=== PATIENT | female | born 1935 | race Caucasian/White ===

== ENCOUNTER 2016-11-20 13:12 | Outpatient (CLI) | payer MEDICARE, BC | END 2016-11-20 13:13 | disposition home or self-care (01) | DX: M35.3 Polymyalgia rheumatica (principal) ==

== ENCOUNTER 2016-12-21 10:38 | Outpatient (CLI) | payer MEDICARE, BC | END 2016-12-21 10:39 | disposition home or self-care (01) | DX: M35.3 Polymyalgia rheumatica (principal) ==

== ENCOUNTER 2017-01-21 13:51 | Outpatient (CLI) | payer MEDICARE, BC | END 2017-01-21 13:52 | disposition home or self-care (01) | DX: M35.3 Polymyalgia rheumatica (principal) ==

== ENCOUNTER 2017-02-19 13:35 | Outpatient (CLI) | payer MEDICARE, BC | END 2017-02-19 13:36 | disposition home or self-care (01) | DX: M51.36 Other intervertebral disc degeneration, lumbar region (principal); M47.896 Other spondylosis, lumbar region; M41.86 Other forms of scoliosis, lumbar region; M35.3 Polymyalgia rheumatica; R82.5 Elevated urine levels of drugs, medicaments and biological substances; R30.0 Dysuria; N39.0 Urinary tract infection, site not specified ==

== ENCOUNTER 2017-02-19 14:23 | Outpatient (CLI) | payer MEDICARE, BC | END 2017-02-19 14:24 | disposition home or self-care (01) | DX: R82.5 Elevated urine levels of drugs, medicaments and biological substances (principal); R30.0 Dysuria; N39.0 Urinary tract infection, site not specified ==

== ENCOUNTER 2017-02-25 12:26 | Outpatient (CLI) | payer MEDICARE, BC | END 2017-02-25 12:27 | disposition home or self-care (01) | DX: M54.5 Low back pain (principal) ==

== ENCOUNTER 2017-03-26 13:08 | Outpatient (CLI) | payer MEDICARE, BC | END 2017-03-26 13:09 | disposition home or self-care (01) | LOC: LAB 13:08 | PROVIDERS: ATTEND Internal Medicine | DX: M35.3 Polymyalgia rheumatica (principal) | CPT/HCPCS: 36415; 85651; 86140 ==

== ENCOUNTER 2017-04-25 11:46 | Outpatient (CLI) | payer MEDICARE, BC | END 2017-04-25 11:47 | disposition home or self-care (01) | LOC: LAB 11:46 | PROVIDERS: ATTEND Internal Medicine | DX: M35.3 Polymyalgia rheumatica (principal) | CPT/HCPCS: 36415; 85651; 86140 ==

== ENCOUNTER 2017-05-24 13:51 | Outpatient (CLI) | payer MEDICARE, BC ==
[2017-05-24 14:26] LABS: HCT - HEMATOCRIT 46.5 % (37.0-47.0); HGB - HEMOGLOBIN 15.6 g/dL (12.0-16.0)
[2017-05-24 15:10] LABS: FERRITIN 41.5 ng/mL (11.0-306.8)
[2017-05-24 15:24] LABS: THYROID STIMULATING HORMONE 1.42 uIU/mL (0.34-5.60)
[2017-05-24 15:30] LABS: IRON 62 ug/dL (28-170); TOTAL IRON BINDING CAPACITY 374 ug/dL (250-450); TRANSFERRIN 267 mg/dL (192-382)
== END 2017-05-24 13:52 | disposition home or self-care (01) ==
LOC: LAB 13:51
PROVIDERS: ATTEND Internal Medicine
DX: M35.3 Polymyalgia rheumatica (principal)
CPT/HCPCS: 36415; 82728; 83540; 84443; 84466; 85014; 85018; 85651; 86140

== ENCOUNTER 2017-06-24 14:37 | Outpatient (CLI) | payer MEDICARE, BC | END 2017-06-24 14:38 | disposition home or self-care (01) | LOC: LAB 14:37 | PROVIDERS: ATTEND Internal Medicine | DX: M35.3 Polymyalgia rheumatica (principal) | CPT/HCPCS: 36415; 85651; 86140 ==

== ENCOUNTER 2017-07-03 09:00 | Outpatient (CLI) | payer MEDICARE, BC ==
[2017-07-03 09:52] LABS: BASOPHILS # (AUTO) 0.1 10^3/uL (0.0-0.1); BASOPHILS % (AUTO) 1.2 %; EOSINOPHILS # (AUTO) 0.2 10^3/uL (0.0-0.7); EOSINOPHILS % (AUTO) 3.8 %; HCT - HEMATOCRIT 44.2 % (37.0-47.0); HGB - HEMOGLOBIN 14.6 g/dL (12.0-16.0); LYMPHOCYTES # (AUTO) 1.4 10^3/uL (1.5-3.5); LYMPHOCYTES % (AUTO) 23.7 %; MEAN CORPUSCULAR HEMOGLOBIN 31.5 pg (27.0-31.0); MEAN CORPUSCULAR VOLUME 95.5 fL (81.0-99.0); MEAN PLATELET VOLUME 7.9 fL (7.9-10.8); MONOCYTES # (AUTO) 0.3 10^3/uL (0.0-1.0); MONOCYTES % (AUTO) 5.9 %; NEUTROPHILS # (AUTO) 3.8 10^3/uL (1.5-6.6); NEUTROPHILS % (AUTO) 65.4 %; NUCLEATED RED BLOOD CELLS AUTO 0.1 /100WBC; RED BLOOD COUNT 4.63 10^6/uL (4.20-5.40); RED CELL DISTRIBUTION WIDTH 12.8 % (12.0-15.0); UNCORRECTED WHITE BLOOD COUNT 5.8 x10^3/uL; WHITE BLOOD COUNT 5.8 x10^3/uL (4.8-10.8)
[2017-07-03 10:23] LABS: ALBUMIN/GLOBULIN RATIO 1.4 (1.0-2.2); BILIRUBIN,TOTAL 0.9 mg/dL (0.2-1.0); BUN - BLOOD UREA NITROGEN 16 mg/dL (6-20); CALCIUM 9.2 mg/dL (8.5-10.3); CARBON DIOXIDE - CO2 29 mmol/L (21-32); CHLORIDE 105 mmol/L (101-111); CHOLESTEROL 144 mg/dL; CREATININE 0.6 mg/dL (0.4-1.0); GFR - MDRD 96 (>89); GLUCOSE 89 mg/dL (70-100); HDL CHOLESTEROL 71 mg/dL; LDL/HDL RATIO 0.7 (<4.4); SODIUM 141 mmol/L (135-145); TOTAL PROTEIN 6.6 g/dL (6.7-8.2); TRIGLYCERIDES 118 mg/dL; VLDL CHOLESTEROL 24 mg/dL
== END 2017-07-03 09:01 | disposition home or self-care (01) ==
LOC: LAB 09:00
PROVIDERS: ATTEND Physician Assistant Medical
DX: E55.9 Vitamin D deficiency, unspecified (principal); E78.5 Hyperlipidemia, unspecified; Z79.899 Other long term (current) drug therapy
CPT/HCPCS: 36415; 80053; 80061; 82306; 84443; 85025

== ENCOUNTER 2017-07-24 10:45 | Outpatient (CLI) | payer MEDICARE, BC ==
--- NOTE | 2017-07-24 14:55 | DEXA Report ---
DEXA SCAN: 07/24/2017 CLINICAL INDICATION: Osteopenia. TECHNIQUE: Dual energy x-ray absorptiometry (DXA) was performed on a [employer] system. Regions measured are the AP spine, femoral neck, and, if needed, forearm. COMPARISON: None. In accordance with the International Society for Clinical Densitometry (ISCD) guidelines, data from previous exams may be reanalyzed using current recommendations and techniques. This is done to allow a more accurate basis for comparison with the current study. FINDINGS The data for the lumbar spine is as follows: REGION BMD (g/cm/cm) T-SCORE Z-SCORE L1 0.933 -1.6 1.0 L2 0.975 -1.9 0.7 L3 1.241 0.3 2.9 L4 1.106 -0.8 1.8 TOTAL 1.078 -0.9 1.8 NOTE: All evaluable vertebrae are used for classification. The data for the hip is as follows: REGION BMD (g/cm/cm) T-SCORE Z-SCORE Neck 0.750 -2.1 0.7 TOTAL 0.741 -2.1 0.5 NOTE: The femoral neck or total proximal femur, whichever is lowest, is used for classification. IMPRESSION: THE WHO CLASSIFICATION BASED ON THE INTERNATIONAL REFERENCE STANDARD IS OSTEOPENIA. THE FRACTURE RISK IS INCREASED. RECOMMENDATION: Patients with diagnosis of osteoporosis or osteopenia should have regular bone mineral density assessment. For those eligible for Medicare, routine testing is allowed once every 2 years. Testing frequency can be increased for patients who have rapidly progressing disease or for those who are receiving medical therapy to restore bone mass. COMMENT: World Health Organization (WHO) definitions for osteoporosis and osteopenia: NORMAL BMD: T-score at -1.0 or higher, fracture risk is low. OSTEOPENIA BMD: T-score between -1.0 and -2.5, fracture risk is increased. OSTEOPOROSIS BMD: T-score at -2.5 or lower, fracture risk high. National Osteoporosis Foundation recommends: 1. Obtain adequate dietary calcium (at least 1200 mg per day) and vitamin D (400 -800 international units per day). 2. Participate, as appropriate, in regular weightbearing and muscle- strengthening exercise. 3. Avoid tobacco use and reduce alcohol and caffeine intake. 4. For more detailed information see the website at www.NOF.org. MTDD
== END 2017-07-24 10:46 | disposition home or self-care (01) ==
LOC: DI 10:45
PROVIDERS: ATTEND Physician Assistant Medical
DX: M85.88 Other specified disorders of bone density and structure, other site (principal)
CPT/HCPCS: 77080

== ENCOUNTER 2017-08-27 11:08 | Outpatient (CLI) | payer MEDICARE, BC | END 2017-08-27 11:09 | disposition home or self-care (01) | LOC: LAB 11:08 | PROVIDERS: ATTEND Internal Medicine | DX: M35.3 Polymyalgia rheumatica (principal) | CPT/HCPCS: 36415; 85651; 86140 ==

== ENCOUNTER 2017-09-25 11:25 | Outpatient (CLI) | payer MEDICARE, BC | END 2017-09-25 11:26 | disposition home or self-care (01) | LOC: LAB 11:25 | PROVIDERS: ATTEND Internal Medicine | DX: M35.3 Polymyalgia rheumatica (principal) | CPT/HCPCS: 36415; 85651; 86140 ==

== ENCOUNTER 2017-10-31 11:25 | Outpatient (CLI) | payer MEDICARE, BC | END 2017-10-31 11:26 | disposition home or self-care (01) | LOC: LAB 11:25 | PROVIDERS: ATTEND Internal Medicine | DX: M35.3 Polymyalgia rheumatica (principal) | CPT/HCPCS: 36415; 85651; 86140 ==

== ENCOUNTER 2017-11-28 11:17 | Outpatient (CLI) | payer MEDICARE, BC | END 2017-11-28 11:18 | disposition home or self-care (01) | LOC: LAB 11:17 | PROVIDERS: ATTEND Internal Medicine | DX: M35.3 Polymyalgia rheumatica (principal) | CPT/HCPCS: 36415; 85651; 86140 ==

== ENCOUNTER 2017-12-26 11:07 | Outpatient (CLI) | payer MEDICARE, BC | END 2017-12-26 11:08 | disposition home or self-care (01) | LOC: LAB 11:07 | PROVIDERS: ATTEND Internal Medicine | DX: M35.3 Polymyalgia rheumatica (principal) | CPT/HCPCS: 36415; 85651; 86140 ==

== ENCOUNTER 2018-01-28 11:09 | Outpatient (CLI) | payer MEDICARE, BC | END 2018-01-28 11:10 | disposition home or self-care (01) | LOC: LAB 11:09 | PROVIDERS: ATTEND Internal Medicine | DX: M35.3 Polymyalgia rheumatica (principal) | CPT/HCPCS: 36415; 85651; 86140 ==

== ENCOUNTER 2018-02-27 11:27 | Outpatient (CLI) | payer MEDICARE, BC | END 2018-02-27 11:28 | disposition home or self-care (01) | LOC: LAB 11:27 | PROVIDERS: ATTEND Internal Medicine | DX: M35.3 Polymyalgia rheumatica (principal) | CPT/HCPCS: 36415; 85651; 86140 ==

== ENCOUNTER 2018-05-13 08:00 | Outpatient (CLI) | payer MEDICARE, BC | END 2018-05-13 08:01 | disposition home or self-care (01) | LOC: LAB.R 08:00 | PROVIDERS: ATTEND Physician Assistant Medical | DX: N30.00 Acute cystitis without hematuria (principal) | CPT/HCPCS: 87086 ==

== ENCOUNTER 2018-07-03 11:30 | Outpatient (CLI) | payer MEDICARE, BC ==
[2018-07-03 14:27] LABS: BILIRUBIN,URINE NEGATIVE (NEGATIVE); GLUCOSE, URINE (UA) NEGATIVE (NEGATIVE); KETONES,URINE (UA) NEGATIVE (NEGATIVE); LEUKOCYTE ESTERASE, URINE SMALL (NEGATIVE); NITRITE,URINE NEGATIVE (NEGATIVE); OCCULT BLOOD,URINE NEGATIVE (NEGATIVE); PH,URINE 6.5 PH (5.0-7.5); PROTEIN,URINE NEGATIVE (NEGATIVE); UROBILINOGEN,URINE 0.2 (NORMAL) E.U./dL (NORMAL)
[2018-07-03 14:32] LABS: CLARITY,URINE CLEAR (CLEAR)
[2018-07-03 14:47] LABS: BACTERIA,URINE Few /HPF (None Seen); RBC,URINE 0-5 /HPF (0-5); SQUAMOUS EPITHELIAL CELL,UR MOD Squamous (<= Few)
== END 2018-07-03 11:31 ==
LOC: LAB.R 11:30
PROVIDERS: ATTEND Physician Assistant Medical
DX: N30.00 Acute cystitis without hematuria (principal)
CPT/HCPCS: 81001; 81003; 87086

== ENCOUNTER → 2018-07-24 | Outpatient (CLI) | payer MEDICARE, BC | LOC: LAB.R 08:00 | PROVIDERS: ATTEND Physician Assistant Medical | DX: N30.00 Acute cystitis without hematuria (principal) | CPT/HCPCS: 87086; 87181 ==

== ENCOUNTER 2018-09-02 11:05 | Outpatient (CLI) | payer MEDICARE, BC | END 2018-09-02 23:59 | LOC: LAB.R 11:05 | PROVIDERS: ATTEND Physician Assistant Medical | DX: N30.00 Acute cystitis without hematuria (principal) | CPT/HCPCS: 87086 ==

== ENCOUNTER 2020-01-07 09:06 | Outpatient (CLI) | payer MEDICARE, BC ==
[2020-01-07 12:24] LABS: BASOPHILS # (AUTO) 0.1 10^3/uL (0.0-0.1); EOSINOPHILS # (AUTO) 0.2 10^3/uL (0.0-0.7); EOSINOPHILS % (AUTO) 4.4 %; HGB - HEMOGLOBIN 15.4 g/dL (12.0-16.0); LYMPHOCYTES # (AUTO) 1.2 10^3/uL (1.5-3.5); LYMPHOCYTES % (AUTO) 23.2 %; MEAN CORPUSCULAR HEMOGLOBIN 32.4 pg (27.0-31.0); MEAN CORPUSCULAR HGB CONC 32.9 g/dL (32.0-36.0); MEAN CORPUSCULAR VOLUME 98.3 fL (81.0-99.0); MONOCYTES # (AUTO) 0.4 10^3/uL (0.0-1.0); MONOCYTES % (AUTO) 7.6 %; NEUTROPHILS # (AUTO) 3.2 10^3/uL (1.5-6.6); NEUTROPHILS % (AUTO) 63.6 %; PLT - PLATELET COUNT 302 10^3/uL (130-450); RED BLOOD COUNT 4.76 10^6/uL (4.20-5.40); RED CELL DISTRIBUTION WIDTH 13.1 % (12.0-15.0)
[2020-01-07 12:47] LABS: ALBUMIN 4.3 g/dL (3.2-5.5); ALBUMIN/GLOBULIN RATIO 1.5 (1.0-2.2); ALKALINE PHOSPHATASE 57 IU/L (42-121); ALT ALANINE AMINOTRANSFERASE 29 IU/L (10-60); AST ASPARTATE AMINOTRANSFERASE 32 IU/L (10-42); BILIRUBIN,TOTAL 0.9 mg/dL (0.2-1.0); BUN - BLOOD UREA NITROGEN 18 mg/dL (6-20); CALCIUM 9.1 mg/dL (8.5-10.3); CARBON DIOXIDE - CO2 29 mmol/L (21-32); CHLORIDE 101 mmol/L (101-111); CHOL/HDL RATIO 2.1 (<4.4); CHOLESTEROL 153 mg/dL; CREATININE 0.6 mg/dL (0.4-1.0); GFR - MDRD 95 (>89); GLUCOSE 92 mg/dL (70-100); HDL CHOLESTEROL 72 mg/dL; LDL CHOLESTEROL,CALCULATED 64 mg/dL; LDL/HDL RATIO 0.9 (<4.4); SODIUM 138 mmol/L (135-145); TOTAL PROTEIN 7.1 g/dL (6.7-8.2); VLDL CHOLESTEROL 17 mg/dL
== END 2020-01-07 23:59 | disposition home or self-care (01) ==
LOC: LAB.N 09:06
PROVIDERS: ATTEND Nurse Practitioner
DX: M35.3 Polymyalgia rheumatica (principal); Z79.899 Other long term (current) drug therapy; E55.9 Vitamin D deficiency, unspecified; E78.2 Mixed hyperlipidemia; I10 Essential (primary) hypertension
CPT/HCPCS: 36415; 80053; 80061; 82306; 83721; 84443; 85025

== ENCOUNTER 2020-06-23 09:32 | Outpatient (CLI) | payer MEDICARE, BC ==
--- NOTE | 2020-06-24 09:09 | Ultrasound Report ---
LIMITED ULTRASOUND OF RIGHT BREAST: 06/23/2020 No prior exams were available for comparison. Real-time ultrasound of the right breast upper inner quadrant was performed on the area of interest. No discrete cystic or solid mass lesion identified in the area of palpable abnormality. IMPRESSION: INCOMPLETE: NEEDS ADDITIONAL IMAGING EVALUATION There is no abnormality seen in the right breast to correspond with the palpable abnormality in the u pper inner quadrant, however, clinical followup is recommended. A diagnostic mammogram is also recommended for further evaluation as ultrasound is insensitive for ab normalities such as calcifications or architectural distortion. This exam was interpreted at Station ID: [id number]. Electronically Signed By: Cornelius Santos M.D. ddp/:06/23/2020 11:16:58 Ultrasound BI-RADS: 0 Indeterminate BI-RADS CATEGORY: (0) - 0 RECOMMENDATION: (ADDMAM) - Recommend additional mammographic views. [id number] Immediate follow-up LATERALITY: (B)
== END 2020-06-23 09:33 | disposition home or self-care (01) ==
LOC: DI 09:32
PROVIDERS: ATTEND Nurse Practitioner
DX: N63.12 Unspecified lump in the right breast, upper inner quadrant (principal); Z98.82 Breast implant status
CPT/HCPCS: 76642

== ENCOUNTER 2020-08-24 08:24 | Outpatient (CLI) | payer MEDICARE, BC ==
[2020-08-24] MEDS ORDERED: GADOBUTROL 7.5 MMOL/7.5 ML VIAL ONE (09:48)
[2020-08-24] MEDS ORDERED: GADOBUTROL 7.5 MMOL/7.5 ML VIAL IVP ONE (12:19)
--- NOTE | 2020-09-01 15:01 | MRI Report ---
BREAST MRI OF BOTH BREASTS: 08/24/2020 CLINICAL: Occasional right breast pain. PROCEDURE: MRI BREAST BILATERAL WITH CAD ([id number]) INDICATIONS: Intermittent burning in right breast. R/O implant rupture or leak. TECHNIQUE: The patient was placed prone in a dedicated breast imaging coil. Precontrast axial STIR and 3D FLASH without fat saturation sequences were obtained. Both before and after bolus injection of contrast, sequential 1-minute axial 3D FLASH with fat saturation sequences for 3 time points, with subtraction images and maximum intensity projections (MIPs) generated. Delayed sagittal FLASH images with fat s aturation were also obtained. Computer-aided detection, including computer algorithm analysis of MRI image data for lesion detectio n and characterization, pharmacokinetic analysis, with further physician review for interpretation, w as performed. COMPARISON: None. FINDINGS: Image quality: Excellent. There is minimal background parenchymal enhancement. Right breast: The right breast implant is intact. No findings to suggest intra or extracapsular imp lant rupture. No suspicious enhancement or mass lesions within the right breast. Left breast: There is a 0.9 cm in diameter and a 0.6 cm in diameter T1 hyperintense mass within the left breast deep to the nipple at 3:00 o'clock at a middle depth (series 1402, images 45 and 46). Th luis are hypointense on T2 images. No suspicious enhancement or mass lesions. Miscellaneous: No axillary adenopathy. No intramammary adenopathy. Limited visualization of the he art, lungs, mediastinum, and upper abdomen are unremarkable. A T1 hypointense lesion within the righ t hepatic lobe suggest the presence of a simple hepatic cyst, but is incompletely characterized. IMPRESSION: INCOMPLETE: NEEDS ADDITIONAL IMAGING EVALUATION 1. Intact bilateral breast implants. No findings to suggest intra or extracapsular rupture. 2. T1 hyperintense, T2 hypointense, nonenhancing masses at 3 o'clock in the left breast. Findings ma y represent proteinaceous cysts. Second-look ultrasound is recommended to further characterize these findings. 3. Mammographic comparison is recommended within 6 months of MRI. The patient's previous mammogram w as in 2013. Bilateral mammogram recommended. This exam was interpreted at Station ID: [id number]. Electronically Signed By: Lima cancino/:09/01/2020 13:26:27 ACR BI-RADS Category 0: Incomplete 3340F BI-RADS CATEGORY: (0) - 0 Mammo and [place] [id number] Immediate follow-up LATERALITY: (B)
== END 2020-08-24 08:25 | disposition home or self-care (01) ==
LOC: DI 08:24
PROVIDERS: ATTEND Nurse Practitioner
DX: N63.25 Unspecified lump in the left breast, overlapping quadrants (principal); Z98.82 Breast implant status
CPT/HCPCS: 77049; A9585

== ENCOUNTER 2020-12-26 10:15 | Outpatient (CLI) | payer MEDICARE, BC ==
[2020-12-26 10:30] LABS: BASOPHILS # (AUTO) 0.1 10^3/uL (0.0-0.1); BASOPHILS % (AUTO) 0.8 %; EOSINOPHILS # (AUTO) 0.5 10^3/uL (0.0-0.7); EOSINOPHILS % (AUTO) 6.4 %; HCT - HEMATOCRIT 48.9 % (37.0-47.0); HGB - HEMOGLOBIN 15.8 g/dL (12.0-16.0); LYMPHOCYTES # (AUTO) 1.7 10^3/uL (1.5-3.5); LYMPHOCYTES % (AUTO) 21.1 %; MEAN CORPUSCULAR HEMOGLOBIN 31.7 pg (27.0-31.0); MEAN CORPUSCULAR HGB CONC 32.3 g/dL (32.0-36.0); MEAN PLATELET VOLUME 9.2 fL (7.9-10.8); MONOCYTES # (AUTO) 0.4 10^3/uL (0.0-1.0); MONOCYTES % (AUTO) 5.5 %; NEUTROPHILS # (AUTO) 5.2 10^3/uL (1.5-6.6); NEUTROPHILS % (AUTO) 65.9 %; PLT - PLATELET COUNT 277 10^3/uL (130-450); RED BLOOD COUNT 4.99 10^6/uL (4.20-5.40); RED CELL DISTRIBUTION WIDTH 12.9 % (12.0-15.0); WHITE BLOOD COUNT 7.9 x10^3/uL (4.8-10.8)
[2020-12-26 11:03] LABS: ALBUMIN 4.1 g/dL (3.2-5.5); ALBUMIN/GLOBULIN RATIO 1.4 (1.0-2.2); ALKALINE PHOSPHATASE 68 IU/L (42-121); ALT ALANINE AMINOTRANSFERASE 27 IU/L (10-60); AST ASPARTATE AMINOTRANSFERASE 33 IU/L (10-42); BILIRUBIN,TOTAL 0.9 mg/dL (0.2-1.0); BUN - BLOOD UREA NITROGEN 22 mg/dL (6-20); CALCIUM 9.8 mg/dL (8.5-10.3); CARBON DIOXIDE - CO2 28 mmol/L (21-32); CHLORIDE 102 mmol/L (101-111); CHOL/HDL RATIO 2.2 (<4.4); CHOLESTEROL 174 mg/dL; CREATININE 0.7 mg/dL (0.4-1.0); GFR - MDRD 80 (>89); GLUCOSE 101 mg/dL (70-100); HDL CHOLESTEROL 80 mg/dL; LDL CHOLESTEROL,CALCULATED 78 mg/dL; POTASSIUM 4.5 mmol/L (3.5-5.0); SODIUM 142 mmol/L (135-145); TOTAL PROTEIN 7.1 g/dL (6.7-8.2); TRIGLYCERIDES 82 mg/dL; VLDL CHOLESTEROL 16 mg/dL
[2020-12-26 11:04] LABS: THYROID STIMULATING HORMONE 2.03 uIU/mL (0.34-5.60)
== END 2020-12-26 10:16 | disposition home or self-care (01) ==
LOC: LAB 10:15
PROVIDERS: ATTEND Nurse Practitioner
DX: I10 Essential (primary) hypertension (principal); G45.9 Transient cerebral ischemic attack, unspecified; E78.2 Mixed hyperlipidemia; E55.9 Vitamin D deficiency, unspecified; M85.80 Other specified disorders of bone density and structure, unspecified site
CPT/HCPCS: 36415; 80053; 80061; 82306; 83721; 84443; 85025

== ENCOUNTER 2021-01-09 07:49 | Outpatient (CLI) | payer MEDICARE, BC ==
--- NOTE | 2021-01-09 17:33 | XRAY Report ---
PROCEDURE: Hand 3 View RT INDICATIONS: ARTHRITIS, R HAND TECHNIQUE: 3 views of the right hand(s) acquired. COMPARISON: None FINDINGS: Bones: No fractures or dislocations. No suspicious bony lesions. Severe first triscaphe the and fir st CMC joint osteoarthritis. Severe third, fourth and fifth PIP joint osteoarthritis. Mild first CMC joint and first through fifth PIP joint arthritis. Soft tissues: No suspicious soft tissue calcifications. IMPRESSION: Osteoarthritis as described above. Reviewed by: Geovanna Kwong MD, PhD on 01/09/2021 5:32 PM PDT Approved by: Geovanna Kwong MD, PhD on 01/09/2021 5:32 PM PDT Station ID: [id number]
== END 2021-01-09 23:59 | disposition home or self-care (01) ==
LOC: DI.N 07:49
PROVIDERS: ATTEND Orthopaedic Surgery
DX: M19.041 Primary osteoarthritis, right hand (principal); M18.11 Unilateral primary osteoarthritis of first carpometacarpal joint, right hand

== ENCOUNTER 2022-08-07 09:51 | Outpatient (CLI) | payer MEDICARE, BC ==
[2022-08-07 10:08] LABS: BASOPHILS # (AUTO) 0.1 10^3/uL (0.0-0.1); BASOPHILS % (AUTO) 1.2 %; EOSINOPHILS # (AUTO) 0.5 10^3/uL (0.0-0.7); EOSINOPHILS % (AUTO) 8.6 %; HCT - HEMATOCRIT 47.1 % (37.0-47.0); HGB - HEMOGLOBIN 15.6 g/dL (12.0-16.0); LYMPHOCYTES # (AUTO) 1.7 10^3/uL (1.5-3.5); LYMPHOCYTES % (AUTO) 28.4 %; MEAN CORPUSCULAR HEMOGLOBIN 32.3 pg (27.0-31.0); MEAN CORPUSCULAR HGB CONC 33.1 g/dL (32.0-36.0); MEAN CORPUSCULAR VOLUME 97.5 fL (81.0-99.0); MEAN PLATELET VOLUME 8.9 fL (7.9-10.8); MONOCYTES # (AUTO) 0.4 10^3/uL (0.0-1.0); MONOCYTES % (AUTO) 6.4 %; NEUTROPHILS # (AUTO) 3.3 10^3/uL (1.5-6.6); NEUTROPHILS % (AUTO) 55.1 %; PLT - PLATELET COUNT 294 10^3/uL (130-450); RED BLOOD COUNT 4.83 10^6/uL (4.20-5.40); RED CELL DISTRIBUTION WIDTH 12.9 % (12.0-15.0)
[2022-08-07 10:34] LABS: ALBUMIN 4.3 g/dL (3.2-5.5); ALBUMIN/GLOBULIN RATIO 1.6 (1.0-2.2); ALKALINE PHOSPHATASE 62 IU/L (42-121); ALT ALANINE AMINOTRANSFERASE 23 IU/L (10-60); AST ASPARTATE AMINOTRANSFERASE 29 IU/L (10-42); BILIRUBIN,TOTAL 0.7 mg/dL (0.2-1.0); BUN - BLOOD UREA NITROGEN 21 mg/dL (6-20); CARBON DIOXIDE - CO2 30 mmol/L (21-32); CHLORIDE 103 mmol/L (101-111); CHOL/HDL RATIO 2.1 (<4.4); CHOLESTEROL 171 mg/dL; CREATININE 0.8 mg/dL (0.4-1.0); GFR - MDRD 68 (>89); GLUCOSE 101 mg/dL (70-100); HDL CHOLESTEROL 80 mg/dL; LDL CHOLESTEROL,CALCULATED 77 mg/dL; POTASSIUM 4.6 mmol/L (3.5-5.0); SODIUM 142 mmol/L (135-145); TRIGLYCERIDES 68 mg/dL; VLDL CHOLESTEROL 14 mg/dL
== END 2022-08-07 09:52 | disposition home or self-care (01) ==
LOC: LAB 09:51
PROVIDERS: ATTEND Physician Assistant
DX: I10 Essential (primary) hypertension (principal); E78.2 Mixed hyperlipidemia
CPT/HCPCS: 36415; 80053; 80061; 83721; 85025

== ENCOUNTER 2022-08-20 12:29 | Outpatient (CLI) | payer MEDICARE, BC ==
--- NOTE | 2022-08-20 16:08 | DEXA Report ---
PROCEDURE: Dexa Spine and/or Hip INDICATIONS: POST MENOPAUSAL TECHNIQUE: Dual energy x-ray absorptiometry (DXA) was performed on a [employer] System. Regions measur ed are the AP Spine, femoral neck, and if needed forearm. COMPARISON: 05/27/2014 FINDINGS: Lumbar Spine: Bone Mineral Density 1.157 g/cm/cm,T score -0.2, normal Left Hip: Bone Mineral Density 0.709 g/cm/cm,T score -2.4, osteopenia Left Femoral Neck: Bone Mineral Density 0.710 g/cm/cm, T score -2.4, osteopenia IMPRESSION: Osteopenia on the basis of low spine bone mineral density. There has been a statistically significant decrease in the bone mineral density of both the spine and the hip when compared with the 2013 exam. Patients with diagnosis of osteoporosis or osteopenia should have regular bone mineral density assess ment. For those eligible for Medicare, routine testing is allowed once every 2 years. Testing frequ ency can be increased for patients who have rapidly progressing disease or for those who are receivin g medical therapy to restore bone mass. Reviewed by: Michelet Arce MD on 08/20/2022 4:07 PM PDT Approved by: Michelet Arce MD on 08/20/2022 4:07 PM PDT Station ID: [id number]
== END 2022-08-20 12:30 | disposition home or self-care (01) ==
LOC: DI 12:29
PROVIDERS: ATTEND Physician Assistant
DX: Z78.0 Asymptomatic menopausal state (principal); M85.89 Other specified disorders of bone density and structure, multiple sites

== ENCOUNTER 2022-09-25 12:35 | Outpatient (CLI) | payer MEDICARE, BC ==
--- NOTE | 2022-09-25 13:30 | XRAY Report ---
PROCEDURE: Chest 2 View X-Ray INDICATIONS: ACUTE COUGH TECHNIQUE: 2 views of the chest were acquired. COMPARISON: 01/05/2016. FINDINGS: Surgical changes and devices: Bilateral breast implants. Lungs and pleura: No pleural effusions or pneumothorax. Patchy airspace opacity in the left midlung. Mediastinum: Mediastinal contours are normal. Heart size is normal. Bones and chest wall: No suspicious bony abnormalities. Soft tissues appear unremarkable. IMPRESSION: Patchy airspace opacity in the left midlung concerning for pneumonia. Reviewed by: Geovanna Kwong MD, PhD on 09/25/2022 1:29 PM PST Approved by: Geovanna Kwong MD, PhD on 09/25/2022 1:29 PM [facility] Station ID: [id number]
== END 2022-09-25 12:36 | disposition home or self-care (01) ==
LOC: DI 12:35
PROVIDERS: ATTEND Physician Assistant
DX: R05.1 Acute cough (principal); R91.8 Other nonspecific abnormal finding of lung field

== ENCOUNTER 2022-10-22 11:47 | Outpatient (CLI) | payer MEDICARE, BC ==
--- NOTE | 2022-10-22 17:33 | XRAY Report ---
PROCEDURE: Chest 2 View X-Ray INDICATIONS: PNEUMONIA TECHNIQUE: 2 views of the chest were acquired. COMPARISON: 09/25/2022 FINDINGS: Surgical changes and devices: Mammoplasty implants are incidentally noted. Lungs and pleura: No pleural effusions or pneumothorax. Lungs are clear, yet hyperexpanded. Mediastinum: Mediastinal contours are normal. Heart size is normal. Bones and chest wall: No suspicious bony abnormalities. Age-appropriate degenerative changes are see n. S-shaped scoliotic curvature is incidentally noted. Soft tissues appear unremarkable. IMPRESSION: Hyperexpanded lungs are seen, without an acute cardiopulmonary abnormality seen. The previously described infiltrate is no longer seen. Postoperative and degenerative changes are seen. Reviewed by: Eddie Glynn MD on 10/22/2022 4:31 PM [facility] Approved by: Eddie Glynn MD on 10/22/2022 4:31 PM [facility] Station ID: [id number]
== END 2022-10-22 23:59 | disposition home or self-care (01) ==
LOC: DI.N 11:47
PROVIDERS: ATTEND Physician Assistant
DX: Z09 Encounter for follow-up examination after completed treatment for conditions other than malignant neoplasm (principal); Z87.01 Personal history of pneumonia (recurrent)